=== PATIENT | female | born 1970 | race Two or more races ===

== ENCOUNTER → 2017-01-07 | Outpatient (REF) | payer OTHER | LOC: M SFHCLERA 19:24 | PROVIDERS: ATTEND Nurse Practitioner Family | DX: R50.9 Fever, unspecified (principal) ==

== ENCOUNTER → 2018-10-23 | Outpatient (CLI) | payer OTHER ==
--- NOTE | 2018-10-23 19:41 | ECHO ---
DATE OF PROCEDURE: 10/23/2018 Date of : 1970 Age: 48 Gender: Female Height: 62 inches Weight: 195 pounds Body surface area: 1.89 meters squared Outpatient. REFERRING PHYSICIAN: NATA Lorenzo INDICATION: Abnormal EKG - left bundle branch block. Palpitations. Hypertension. MEASUREMENTS: 2D measurements: RV: 2.8 cm LV: 5.0 cm Septum: 1.2 cm Posterior wall: 1.2 cm Aortic root: 2.5 cm LA: 3.8 cm LVEF: 65% Doppler measurements: AV: 1.5 meters per second LVOT: 1.3 meters per second LVOT diameter: 2.0 cm MV-E: 78, A: 100, EA ratio: 0.8 E prime: 7.1, A prime: 10, E/E prime ratio: 11 Pulmonary capillary wedge pressure: 15 mmHg PV: 1.0 meters per second Pulmonary artery acceleration time: 100 milliseconds RVSP: 37 mmHg IVC: 1.8 cm COMMENTS: Normal sinus rhythm with left bundle branch block. Technically difficult study in light of the patient's body habitus but diagnostically useful information was still obtained. M-mode and two-dimensional echocardiography was performed with pulsed, continuous wave, color flow, and tissue Doppler studies. Borderline concentric left ventricle hypertrophy with marginal septal wall motion abnormality, likely due to left bundle branch block yet preserved global resting systolic function. Left atrium upper limits of normal in size with Doppler evidence of an impairment of LV diastolic function but current estimated mean left atrial pressure upper limits of normal to slightly increased. Normal right heart chamber sizes and motion with Doppler sign of mild pulmonary hypertension. Normal IVC size and collapse against an elevated central venous pressure. Normal appearing valvular structures and function. No apparent intracardiac mass or pericardial effusion. Normal aortic root size. MTDD
== END ==
LOC: M CARPUL 11:54
PROVIDERS: ATTEND Physician Assistant
DX: I44.7 Left bundle-branch block, unspecified (principal); R00.2 Palpitations; I11.9 Hypertensive heart disease without heart failure

== ENCOUNTER → 2019-08-01 | Outpatient (REF) | payer OTHER | LOC: M LAB REF 16:06 | PROVIDERS: ATTEND Physician Assistant | DX: R30.0 Dysuria (principal) ==

== ENCOUNTER 2023-03-25 09:29 | Day surgery (SDC) | payer OTHER ==
[~2023-03-25] VITALS: Ht 157.5 cm; Wt 89.7 kg
[~2023-03-25 09:29] MED LIST: ADV250INH PO; ALBU8.5H INH; CLAR10CA3 PO; CO Q200C10 PO; LISI10TA22 PO; MONT10TA97 PO; NAPR375T4 PO; NS 1,000 ML IV ONE; OMEP1CAP73 PO; ROSU10TA6 PO; ULTR5TAB PO
[2023-03-25] MEDS ORDERED: propofoL 200 MG/20 ML VIAL As Ordered ONE (10:31)
[2023-03-25] MEDS ORDERED: LIDOCAINE 2% 100MG/5ML SDV (FOR ANES.) As Ordered ONE (10:31)
[2023-03-25 11:15] VITALS: BP 119/57; O2SAT 97
== END 2023-03-25 11:21 | disposition home or self-care (01) ==
LOC: M OPP 09:29
PROVIDERS: ATTEND Surgery
DX: Z12.11 Encounter for screening for malignant neoplasm of colon (principal); K57.30 Diverticulosis of large intestine without perforation or abscess without bleeding; Z79.02 Long term (current) use of antithrombotics/antiplatelets; Z79.1 Long term (current) use of non-steroidal anti-inflammatories (NSAID); Z79.51 Long term (current) use of inhaled steroids; Z79.899 Other long term (current) drug therapy; Z88.0 Allergy status to penicillin

== ENCOUNTER → 2024-08-06 | Outpatient (REF) | payer OTHER ==
[~2024-08-06] MED LIST changes: +NAPR-1404 PO; -NAPR375T4 PO; -NS 1,000 ML IV ONE; -ROSU10TA6 PO; +ROSU10TA61 PO
[2024-08-06 17:40] LABS: C REACTIVE PROTEIN QUANTITATIV < 0.40 MG/DL (<1.0)
[2024-08-06 17:44] LABS: TOTAL 25(OH) VITAMIN D 46.6 NG/ML (20.0-100.0)
== END ==
LOC: M SFHCRHEU 15:01
PROVIDERS: ATTEND Internal Medicine
DX: M25.50 Pain in unspecified joint (principal); E55.9 Vitamin D deficiency, unspecified

== ENCOUNTER → 2024-08-24 | Outpatient (CLI) | payer OTHER | LOC: M RAD 15:58 | PROVIDERS: ATTEND Internal Medicine | DX: M54.2 Cervicalgia (principal); M19.031 Primary osteoarthritis, right wrist; M19.032 Primary osteoarthritis, left wrist; M77.31 Calcaneal spur, right foot; M77.32 Calcaneal spur, left foot; M25.50 Pain in unspecified joint ==

== ENCOUNTER → 2025-07-18 | Outpatient (REF) | payer OTHER ==
[~2025-07-18] MED LIST changes: -ADV250INH PO; +ADVA1AER9 PO
== END ==
LOC: M SFHCDERM 13:23
PROVIDERS: ATTEND Nurse Practitioner Family
DX: L82.0 Inflamed seborrheic keratosis (principal)